=== PATIENT | female | born 1995 | race Caucasian/White ===

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

== ENCOUNTER → 2017-01-28 | Outpatient (CLI) | payer BC, OTHER | END | disposition home or self-care (01) | LOC: LAB 03:40 | DX: Z34.02 Encounter for supervision of normal first pregnancy, second trimester (principal); Z3A.00 Weeks of gestation of pregnancy not specified ==

== ENCOUNTER → 2017-02-03 | Outpatient (CLI) | payer BC, OTHER ==
[2017-02-03 09:40] VITALS: BP 110/63
== END | disposition home or self-care (01) ==
LOC: INJECTION 03:10
DX: Z34.02 Encounter for supervision of normal first pregnancy, second trimester (principal)

== ENCOUNTER → 2017-03-22 | Outpatient (CLI) | payer OTHER | END | disposition home or self-care (01) | LOC: LAB 13:20 | DX: Z34.03 Encounter for supervision of normal first pregnancy, third trimester (principal) ==

== ENCOUNTER → 2018-01-09 | Outpatient (CLI) | payer OTHER ==
--- NOTE | ~2018-01-09 | HM ---
[place], [place] HOLTER MONITOR REPORT NAME: HERIBERTO CLEMENTS UNIT #: [id number] ROOM: DOCTOR: RAYMOND SOTOMAYOR MD BIRTHDATE: [birth year] DOS: 01/09/2018 48-HOUR HOLTER MONITOR. REFERRING PHYSICIAN: . INDICATION: Tachycardia. FINDINGS: The patient underwent 48-hour Holter monitoring. 1. The patient's baseline rhythm is sinus tachycardia with an average heartbeat of 104. The patient's minimum heart rate was 64 with a maximum heart rate of 190. 2. Supraventricular activity. The patient had a total of 28 supraventricular ectopic beats with one triplet noted. Otherwise, isolated PACs. 3. Ventricular activity: The patient had 74 isolated PVCs noted. No other ventricular arrhythmias. 4. No significant blocks, pauses, or bradycardia. 5. No diary was returned. SUMMARY OF FINDINGS: Overall benign-appearing 48-hour Holter monitor with the exception of elevated average heart rate of 104 beats per minute. The context given for the maximum heart rate, which was sinus tachycardia 190 beats at 5:30 p.m. Clinical correlation recommended. RAYMOND SOTOMAYOR MD CM:HOLTER:HOLTER MONITOR REPORT [id number] RAYMOND SOTOMAYOR MD
== END | disposition home or self-care (01) ==
LOC: LAB 09:52 → CARD 11:00
DX: R00.0 Tachycardia, unspecified (principal)

== ENCOUNTER → 2019-08-14 | Outpatient (CLI) | payer OTHER | END | disposition home or self-care (01) | LOC: US 12:16 | DX: Z34.82 Encounter for supervision of other normal pregnancy, second trimester (principal); Z3A.19 19 weeks gestation of pregnancy ==

== ENCOUNTER → 2019-10-09 | Outpatient (CLI) | payer OTHER | END | disposition home or self-care (01) | LOC: US 13:00 | DX: Z34.82 Encounter for supervision of other normal pregnancy, second trimester (principal); Z3A.21 21 weeks gestation of pregnancy ==

== ENCOUNTER → 2019-11-13 | Outpatient (CLI) | payer OTHER | END | disposition home or self-care (01) | LOC: US 10:48 | DX: Z34.83 Encounter for supervision of other normal pregnancy, third trimester (principal); Z3A.32 32 weeks gestation of pregnancy ==